=== PATIENT | male | born 1985 | race Caucasian/White ===

== ENCOUNTER 2016-09-18 18:34 | Emergency (ER) ==
[2016-09-18 18:40] VITALS: BP 168/110; TEMP 97.4; BMI 25.5
[2016-09-18 18:53] LABS: BASOPHILS # (AUTO) 0.1 K/uL (0-0.2); BASOPHILS % (AUTO) 0.6 % (0.0-3.0); EOSINOPHILS # (AUTO) 0.3 K/ul (0.0-0.7); HEMOGLOBIN 16.1 g/dl (14.0-18.0); IMMATURE GRANULOCYTE % (AUTO) 0.4 % (0.0-5.0); LYMPHOCYTES # (AUTO) 2.7 K/uL (0.60-3.4); LYMPHOCYTES % (AUTO) 26.3 (10.0-50.0); MEAN CORPUSCULAR HEMOGLOBIN 29.5 pg (27.0-31.0); MEAN CORPUSCULAR HGB CONC 33.5 (31.8-35.4); MEAN CORPUSCULAR VOLUME 87.9 fl (80.0-94.0); MONOCYTES # (AUTO) 0.7 K/uL (0.4-2.0); MONOCYTES % (AUTO) 7.1 (0-10); NEUTROPHILS # (AUTO) 6.4 K/ul (2.0-6.9); NEUTROPHILS % (AUTO) 62.6; PLATELET COUNT 309 10^3/uL (140-440); RED BLOOD COUNT 5.46 10^6/ul (4.70-6.10); WHITE BLOOD COUNT 10.21 K/ul (4.2-10.2)
[2016-09-18 19:06] LABS: BILIRUBIN,URINE Negative (NEGATIVE); KETONES,URINE 1+ (NEGATIVE); LEUKOCYTE ESTERASE ,URINE Negative (NEGATIVE); NITRITE,URINE Negative (NEGATIVE); PH,URINE 5.5 (5-9); PROTEIN,URINE Negative (NEGATIVE); URINE, BLOOD Negative (NEGATIVE)
[2016-09-18 19:10] LABS: ADD URINE MICROSCOPIC NO
[2016-09-18 19:16] LABS: COCAIN SCREEN,URINE NEGATIVE (NEGATIVE)
[2016-09-18 19:36] LABS: ACETAMINOPHEN < 3 ug/ml (10-30); ALANINE AMINOTRANSFERASE 74 U/L (12-78); ALBUMIN 4.3 g/dL (3.4-5.0); ALBUMIN/GLOBULIN RATIO 1.16; ALKALINE PHOSPHATASE 77 U/L (50-136); ANION GAP 15.8; ASPARTATE AMINO TRANSFERASE 65 U/L (15-37); BILIRUBIN,TOTAL 1.16 mg/dL (0.00-1.20); BLOOD UREA NITROGEN 21 mg/dL (7-18); BUN/CREATININE RATIO 21.87; CALCIUM 9.6 mg/dL (8.2-10.2); CARBON DIOXIDE 31 mmol/L (21-32); CHLORIDE 99 mmol/L (98-107); CREATININE 0.96 mg/dL (0.60-1.10); GLUCOSE 125 mg/dL (70-100); POTASSIUM 3.8 mmol/L (3.5-5.1); SALICYLATE < 5.0 mg/dL (2.8-20.0); SODIUM 142 mmol/L (136-145)
--- NOTE | 2016-09-18 22:44 | ED.PDOC ---
General ED Provider: Dr. ISAAC NAVARRETE-ER Chief Complaint: Behavioral Complaint Stated Complaint: see nursing assessment Time Seen by Physician: 18:40 Mode of Arrival: Walk-In Information Source: Patient, Family, Police Exam Limitations: No limitations Nursing and Triage Documentation Reviewed and Agree: Yes Miscellaneous Complaint Exam - Complex/Multi-System Complaint/Exam Onset/Duration: unknown Symptoms Are: Still present Initial Severity: Mild Current Severity: None Location of Pain: no pain Associated Signs and Symptoms: Reports: Agitation. Denies: Decreased responsiveness, Confusion, Dizziness, Weakness, Syncope, Headache, Short of air , Cough, Wheezing, Hemoptysis, Chest pain, Palpitations, Edema, Nausea, Vomiting , Diarrhea, Abdominal pain, Back pain, Dysuria, Hematemesis, Melena, Decreased oral intake, Fever, Diaphoresis, Immunocompromised, Anticoagulation Therapy, Recent medication changes, Indwelling medical equipment sales, Prior MRSA, Prior VRE, Recent trauma, Remote trauma Recent Echo/LV Function: No Respiratory Distress: None JVD Present: No Tachypnea Present: No Stridor Present: No Abdominal Findings: Present: Normal findings Glascow Coma Scale (see protocol): 15 Meningeal Signs Positive: No Focal Weakness: Present: None Focal Sensory Loss: Present: None Gait: Normal Gag Reflex Present: Yes Babinski Sign: Negative Right, Negative Left Skin Findings: Present: Normal findings Joint Swelling Present: No In-Dwelling Device Present: No Differential Diagnosis: Other Review of Systems - Review Of Systems Constitutional: Reports: No symptoms Eyes: Reports: No symptoms Ears, Nose, Mouth, Throat: Reports: No symptoms Respiratory: Reports: No symptoms Cardiac: Reports: No symptoms GI: Reports: No symptoms : Reports: No symptoms Musculoskeletal: Reports: No symptoms Skin: Reports: No symptoms Neurological: Reports: No symptoms Endocrine: Reports: No symptoms Hematologic/Lymphatic: Reports: No symptoms All Other Systems: Reviewed and Negative Past Medical History - Past Medical History Previously Healthy: Yes Endocrine: Reports: Unknown Cardiovascular: Reports: Unknown Respiratory: Reports: None Hematological: Reports: Unknown Gastrointestinal: Reports: Unknown Genitourinary: Reports: Unknown Neuro/Psych: Reports: Unknown Musculoskeletal: Reports: None Cancer: Reports: Unknown - Surgical History General Surgical History: Reports: Unknown - Family History Family History: Reports: Unknown - Social History Smoking Status: Former smoker, Dips snuff Hx Substance Use: No Alcohol Screening: None Lives: With family Physical Exam - Physical Exam Appearance: Well-appearing, No pain distress, Well-nourished Eyes: BRITTANEY, EOMI, Conjunctiva clear ENT: Ears normal, Nose normal, Oropharynx normal Neck: Supple Respiratory: Airway patent, Breath sounds clear, Breath sounds equal, Respirations nonlabored Cardiovascular: RRR, Pulses normal, No rub, No murmur GI/: Soft, Nontender, No masses, Bowel sounds normal, No Organomegaly Musculoskeletal: Normal strength, ROM intact, No edema, No calf tenderness Skin: Warm, Dry, Normal color Neurological: Sensation intact, Motor intact, Reflexes intact, Cranial nerves intact, Alert, Oriented Psychiatric: Affect appropriate, Mood appropriate Re-Evaluation - Re-Evaluation Time of Re-Evaluation: 22:44 Status: Improved Vital Signs Stable: Yes Pain Level: 0 Appearance: NAD Lungs: Clear Skin: Warm and Dry Neuro: Alert and Oriented X3 CV: RRR Critical Care Note - Critical Care Note Total Time (mins): 0 Course - Course Hematology/Chemistry: 09/18/16 18:40 09/18/16 18:40 Orders, Labs, Meds: Lab Review 09/18/16 09/18/16 18:40 18:55 WBC 10.21 H RBC 5.46 Hgb 16.1 Hct 48.0 MCV 87.9 MCH 29.5 MCHC 33.5 RDW Coeff of Richard 13.0 Plt Count 309 Immature Gran % (Auto) 0.4 Neut % (Auto) 62.6 Lymph % (Auto) 26.3 Lucas % (Auto) 7.1 Eos % (Auto) 3.0 Baso % (Auto) 0.6 Immature Gran # (Auto) 0.0 Neut # 6.4 Lymph # 2.7 Lucas # 0.7 Eos # 0.3 Baso # 0.1 Sodium 142 Potassium 3.8 Chloride 99 Carbon Dioxide 31 Anion Gap 15.8 BUN 21 H Creatinine 0.96 Estimated GFR (MDRD) 93.00 BUN/Creatinine Ratio 21.87 Glucose 125 H Calcium 9.6 Total Bilirubin 1.16 AST 65 H ALT 74 Alkaline Phosphatase 77 Total Protein 8.0 Albumin 4.3 Globulin 3.7 Albumin/Globulin Ratio 1.16 TSH 0.868 Urine Color Yellow Urine Clarity Clear Urine pH 5.5 Ur Specific [place] 1.015 Urine Protein Negative Urine Glucose (UA) Negative Urine Ketones 1+ Urine Blood Negative Urine Nitrite Negative Urine Bilirubin Negative Urine Urobilinogen 0.2 Ur Leukocyte Esterase Negative Salicylate Level mg/dL < 5.0 Urine Opiates Screen Positive Ur Oxycodone Screen Negative Urine Methadone Screen Negative Ur Propoxyphene Screen Negative Acetaminophen < 3 L Ur Barbiturates Screen Negative U Tricyclic Antidepress Negative Ur Phencyclidine Scrn Negative Ur Amphetamine Screen Positive U Methamphetamines Scrn Positive U Benzodiazepines Scrn Positive Urine Cocaine Screen Negative U Cannabinoids Screen Positive Plasma/Serum Alcohol < 10.0 Orders Category Date Time Status Mental Health Consult [ED MENTAL HEALTH CONSULT] .ONCE EMERGENCY 09/18/16 18: 55 Active ACETAMINOPHEN Stat LAB 09/18/16 18:40 Completed BLOOD ALCOHOL Stat LAB 09/18/16 18:40 Completed CBC W/ AUTO DIFF Stat LAB 09/18/16 18:40 Completed COMPREHENSIVE METABOLIC PANEL Stat LAB 09/18/16 18:40 Completed SALICYLATE Stat LAB 09/18/16 18:40 Completed THYROID STIMULATING HORMONE Stat LAB 09/18/16 18:40 Completed URINALYSIS C & S IF INDICATED Stat LAB 09/18/16 18:55 Completed URINE DRUG SCREEN (RAPID FOR ED) [DRUG SCREEN, URINE, LAB 09/18/16 18:55 Completed RAPID] Stat mental health agrees he is not suicidal Vital Signs: Temp Pulse Resp BP Pulse Ox 09/18/16 18:34 97.4 F L 99 H 20 168/110 H 99 Departure - Departure Time of Disposition: 22:45 Disposition: HOME SELF-CARE Discharge Problem: Substance abuse Instructions: Polysubstance Abuse (ED) Condition: Good Pt referred to PMD for follow-up: Yes Additional Instructions: f/u with mental health as directed tonight--consider treatment for substance abuse Allergies/Adverse Reactions: Allergies Penicillins Adverse Reaction (Verified 09/18/16 18:41) Home Medications: Ambulatory Orders Aripiprazole [Abilify] 10 mg PO DAILY 09/18/16 Disposition Discussed With: Patient, Family
== END 2016-09-18 23:20 | disposition home or self-care (01) ==
LOC: ED 18:34
DX: F19.10 Other psychoactive substance abuse, uncomplicated (principal); Z72.0 Tobacco use
CPT/HCPCS: 36415; 80053; 80306; 80307; 81001; 84443; 85025; 99284

== ENCOUNTER 2017-03-07 19:06 | Emergency (ER) ==
[2017-03-07 19:21] VITALS: BP 00/00; TEMP 98.5; BMI 25.8
--- NOTE | 2017-03-07 19:25 | ED.PDOC ---
General ED Provider: Dr. TOÑITO SCHAEFER Chief Complaint: Finger Laceration Stated Complaint: rt hand got injured in the running car belt. has multiple cuts c/o pain Time Seen by Physician: 19:23 Mode of Arrival: Walk-In Information Source: Patient Nursing and Triage Documentation Reviewed and Agree: Yes Musculoskeletal Complaint Exam - Hand/Wrist Complaint/Exam Location of Pain: Reports: Right, Digit #3, Digit #4, Digit #5 Mechanism of Injury: Reports: Trauma Symptoms Are: Still present Onset of Pain: Reports: Immediate Initial Severity: Severe Current Severity: Severe Location: Reports: Discrete Character: Reports: Aching, Throbbing Alleviating: Reports: None Aggravating: Reports: Movement Associated Signs and Symptoms: Reports: Redness (cuts on 3,4,5) Dominant Hand: Right Hand/Wrist Findings: Present: Swelling, Laceration Differential Diagnoses: Abrasion, Closed Fracture, Puncture Wound, Sprain Review of Systems - Review Of Systems Constitutional: Reports: No symptoms Eyes: Reports: No symptoms Ears, Nose, Mouth, Throat: Reports: No symptoms Respiratory: Reports: No symptoms Cardiac: Reports: No symptoms GI: Reports: No symptoms : Reports: No symptoms Musculoskeletal: Reports: No symptoms Skin: Reports: No symptoms Neurological: Reports: No symptoms Endocrine: Reports: No symptoms Hematologic/Lymphatic: Reports: No symptoms All Other Systems: Reviewed and Negative Past Medical History - Past Medical History Previously Healthy: Yes Endocrine: Reports: Unknown Cardiovascular: Reports: Unknown Respiratory: Reports: None Hematological: Reports: None Gastrointestinal: Reports: None Genitourinary: Reports: None Neuro/Psych: Reports: None Musculoskeletal: Reports: None Cancer: Reports: None - Surgical History General Surgical History: Reports: None - Family History Family History: Reports: None - Social History Smoking Status: Former smoker, Dips snuff Hx Substance Use: No Alcohol Screening: None - Immunizations Tetanus Shot up to Date: No Physical Exam - Physical Exam Appearance: Ill-appearing Eyes: BRITTANEY, EOMI, Conjunctiva clear ENT: Ears normal, Nose normal, Oropharynx normal Respiratory: Airway patent, Breath sounds clear, Breath sounds equal, Respirations nonlabored Cardiovascular: RRR, Pulses normal, No rub, No murmur GI/: Soft, Nontender, No masses, Bowel sounds normal, No Organomegaly Musculoskeletal: Normal strength, ROM intact, No edema, No calf tenderness Skin: Warm, Dry, Normal color Neurological: Sensation intact, Motor intact, Reflexes intact, Cranial nerves intact, Alert, Oriented Psychiatric: Affect appropriate, Mood appropriate Procedures - Laceration/Wound Repair No standard instances Wound Description: Linear Wound Length (cm): 2cm, 3 cm on 3,4 fingers Wound Explored: Contaminated Wound Irrigated: Yes Wound Prep: Saline, Hibiclens Anesthesia: Lidocaine Wound Repaired With: Sutures Number of Sutures: 5 Critical Care Note - Critical Care Note Total Time (mins): 0 Course - Course Orders, Labs, Meds: Orders Category Date Time Status Ceftriaxone Sodium [Rocephin] MEDS 03/07/17 20:21 Discontinued 1 gm IM ONCE STA Lidocaine HCl/Pf [Lidocaine 1 % Amp 5 ml (Sutures)] MEDS 03/07/17 20:21 Discontinued 2.1 ml IM ONCE STA Lidocaine HCl/Pf [Lidocaine 1 % Amp 5 ml (Sutures)] MEDS 03/07/17 20:20 Discontinued 5 ml SUBCUT ONCE STA Morphine Sulfate [Morphine 2 mg/ml Syringe] MEDS 03/07/17 19:17 Discontinued 2 mg IM ONCE STA Ondansetron HCl/Pf [Zofran 4 mg/2 ml] MEDS 03/07/17 19:17 Discontinued 4 mg IM ONCE STA HAND, RIGHT 3 VIEWS Stat RADS 03/07/17 19:17 Completed Medications Discontinued Medications Generic Name Dose Route Start Last Admin Trade Name Talha PRN Reason Stop Dose Admin Ceftriaxone Sodium 1 gm 03/07/17 20:21 Rocephin IM 03/07/17 20:22 ONCE STA Lidocaine HCl 5 ml 03/07/17 20:20 03/07/17 20:30 Lidocaine 1 % Amp 5 Ml (Sutures) SUBCUT 03/07/17 20:21 5 ml ONCE STA Administration Lidocaine HCl 2.1 ml 03/07/17 20:21 Lidocaine 1 % Amp 5 Ml (Sutures) IM 03/07/17 20:22 ONCE STA Morphine Sulfate 2 mg 03/07/17 19:17 03/07/17 19:49 Morphine 2 Mg/Ml Syringe IM 03/07/17 19:18 2 mg ONCE STA Administration Ondansetron HCl 4 mg 03/07/17 19:17 03/07/17 19:50 Zofran 4 Mg/2 Ml IM 03/07/17 19:18 4 mg ONCE STA Administration Vital Signs: Temp Pulse Resp BP Pulse Ox 08/07/17 19:07 98.5 F 128 H 22 00/00 L 98 Departure - Departure Time of Disposition: 20:43 Disposition: HOME SELF-CARE Discharge Problem: Laceration of finger, Avulsion fracture Instructions: Laceration (ED) Condition: Good Pt referred to PMD for follow-up: Yes Additional Instructions: risk of wound infection and bone infection discussed, verbalized understanding. f/u [facility] for Ortho consult Prescriptions: Clindamycin HCl 300 mg PO TID #15 capsule Hydrocodone/Acetaminophen [[place] 5-325 Tablet] 1 tab PO TID PRN #12 tablet PRN Reason: PAIN Allergies/Adverse Reactions: Allergies Penicillins Adverse Reaction (Verified 03/07/17 19:11) Home Medications: Ambulatory Orders Clindamycin HCl 300 mg PO TID #15 capsule 03/07/17 Hydrocodone/Acetaminophen [[place] 5-325 Tablet] 1 tab PO TID PRN #12 tablet 03/07 Disposition Discussed With: Patient
[2017-03-07] MEDS: MORPHINE 2 MG/ML SYRINGE IM STA (19:49)
[2017-03-07] MEDS: ZOFRAN 4 MG/2 ML IM STA (19:50)
--- NOTE | 2017-03-07 20:12 | DI ---
Exam: Five x-rays of the right hand. Comparison: None available. Reason for exam: Injury. FINDINGS: There is a small osseous fragment seen adjacent to the distal fifth proximal carpal bones with adjacent soft tissue swelling. No other fracture is seen. The joint spaces are well maintain ed. Impression: 1. Small osseous fragment adjacent to the distal fifth proximal carpal bones likely represents a sm all avulsion fracture. 2. No other fracture or dislocation is seen in the right hand. Report faxed at 2007 hours on 03/07/2017.
[2017-03-07] MEDS ORDERED: ROCEPHIN IM STA (20:21)
[2017-03-07] MEDS: LIDOCAINE 1 % AMP 5 ML (SUTURES) SUBCUT STA (20:30)
[2017-03-07] MEDS: LIDOCAINE 1 % AMP 5 ML (SUTURES) IM STA (20:52)
[2017-03-07] MEDS: LIDOCAINE 1 % AMP 5 ML (SUTURES) ONE (20:52)
[2017-03-07] MEDS: CLEOCIN PO STA (20:52)
== END 2017-03-07 20:55 | disposition home or self-care (01) ==
LOC: ED 19:06
DX: S61.212A Laceration without foreign body of right middle finger without damage to nail, initial encounter (principal); S61.214A Laceration without foreign body of right ring finger without damage to nail, initial encounter; S61.216A Laceration without foreign body of right little finger without damage to nail, initial encounter; S62.636A Displaced fracture of distal phalanx of right little finger, initial encounter for closed fracture; W31.89XA Contact with other specified machinery, initial encounter
CPT/HCPCS: 96372; 96375; 99283

== ENCOUNTER 2017-03-23 21:03 | Emergency (ER) ==
[2017-03-23 21:21] VITALS: TEMP 98.1; BMI 27.3
[2017-03-23] MEDS ORDERED: BACTRIM DS 800/160 MG PO STA (21:51)
--- NOTE | 2017-03-23 21:56 | ED.PDOC ---
General ED Provider: Dr. ALIREZA NÚÑEZ Chief Complaint: Wound Check Stated Complaint: Patient is a 32 year old male who was seen a few here a few weeks ago with right finger fracture was refereed to the ortho clinic but was not seen due to an outstanding bill. He is concerned of infection on the fingers due to yellowish pinkish drainage. Also states has limitation in mobility. He has finished antibiotics he was given. Time Seen by Physician: 21:52 Mode of Arrival: Walk-In Information Source: Patient Exam Limitations: No limitations [facility] Nursing and Triage Documentation Reviewed and Agree: Yes Skin Complaint Exam - Skin/Soft Tissue Complaint/Exam Onset/Duration: 2 days Symptoms Are: Still present Timing: Constant Initial Severity: Moderate Current Severity: Moderate Location: Right hand 5th digit Character: Reports: Painful Aggravating: Reports: None Alleviating: Reports: None Associated Signs and Symptoms: Reports: Drainage Related History: Reports: Recent trauma. Denies: Similar episode Related Surgical History: Reports: None Recent Exposure to Others w/Similar Symptoms: No Skin Findings: Present: Skin lesion, Other (some mild redness to the r Rigth 4th 5th digit with minimal driange. ) Differential Diagnoses: Infection Review of Systems - Review Of Systems Constitutional: Reports: No symptoms Eyes: Reports: No symptoms Ears, Nose, Mouth, Throat: Reports: No symptoms Respiratory: Reports: No symptoms Cardiac: Reports: No symptoms GI: Reports: No symptoms : Reports: No symptoms Musculoskeletal: Reports: Joint pain Skin: Reports: Other (right pinky finger drainge ) Neurological: Reports: Anxiety Endocrine: Reports: No symptoms Hematologic/Lymphatic: Reports: No symptoms All Other Systems: Reviewed and Negative Past Medical History - Past Medical History Previously Healthy: Yes Endocrine: Reports: Unknown Cardiovascular: Reports: Unknown Respiratory: Reports: None Hematological: Reports: None Gastrointestinal: Reports: None Genitourinary: Reports: None Neuro/Psych: Reports: None Musculoskeletal: Reports: None Cancer: Reports: None - Surgical History General Surgical History: Reports: None - Family History Family History: Reports: None - Social History Smoking Status: Former smoker, Dips snuff Hx Substance Use: No Alcohol Screening: None - Immunizations Tetanus Shot up to Date: Yes Physical Exam - Physical Exam Appearance: Ill-appearing Ill-appearing: Mild Pain Distress: Mild Neck: Supple Respiratory: Airway patent, Breath sounds clear, Breath sounds equal, Respirations nonlabored Cardiovascular: RRR, Pulses normal, No rub, No murmur Musculoskeletal: Limited ROM (right 4th and 5th finger) Skin: Warm, Dry Neurological: Sensation intact, Alert, Oriented Psychiatric: Affect appropriate Critical Care Note - Critical Care Note Total Time (mins): 0 Comments: Patient explicitly told he will continue to lose mobility of his Right 3rd, 4th and 5th digit Course - Course Orders, Labs, Meds: Orders Category Date Time Status Sulfamethoxazole/Trimethoprim [Bactrim Ds 800/160 mg] MEDS 03/23/17 21:51 Discontinued 1 tab PO ONCE STA Medications Discontinued Medications Generic Name Dose Route Start Last Admin Trade Name Freq PRN Reason Stop Dose Admin Trimethoprim/Sulfamethoxazole 1 tab 03/23/17 21:51 03/23/17 21:56 Bactrim Ds 800/160 Mg PO 03/23/17 21:52 1 tab ONCE STA Administration Vital Signs: Temp Pulse Resp BP Pulse Ox 03/23/17 21:56 88 120/82 98 03/23/17 21:04 98.1 F 89 18 138/90 99 Departure - Departure Time of Disposition: 21:56 Disposition: HOME SELF-CARE Discharge Problem: Wound Instructions: Wound Infection (ED) Condition: Fair Pt referred to PMD for follow-up: Yes Additional Instructions: You must follow up with orthopedics in the morning or else you will lose mobility of the 3rd 4th and 5th right fingers. Take antibiotics as prescribed. Follow up with the clinic in 1-2 day. Keep wound clean Apply dressing twice a day. Prescriptions: Sulfamethoxazole/Trimethoprim [Bactrim Ds Tablet] 1 each PO BID #20 tablet Allergies/Adverse Reactions: Allergies Penicillins Adverse Reaction (Verified 03/23/17 21:18) Rash Home Medications: Ambulatory Orders Sulfamethoxazole/Trimethoprim [Bactrim Ds Tablet] 1 each PO BID #20 tablet 03/23 Disposition Discussed With: Patient
[2017-03-23 21:58] VITALS: BP 120/82
== END 2017-03-23 22:10 | disposition home or self-care (01) ==
LOC: ED 21:03
DX: S61.206D Unspecified open wound of right little finger without damage to nail, subsequent encounter (principal); L08.9 Local infection of the skin and subcutaneous tissue, unspecified; S62.609 Fracture of unspecified phalanx of unspecified finger
CPT/HCPCS: 99282